=== PATIENT | male | born 1955 | race Caucasian/White ===

== ENCOUNTER 2017-06-25 10:50 | Emergency (ER) | payer MEDICARE, MEDICAID ==
--- NOTE | 2017-06-25 11:25 | ED Physician Chart ---
Chief Complaint/HPI - Patient Information Date Seen:: 06/25/17 Time Seen:: 11:24 Chief Complaint:: multiple complaints History of Present Illness:: this patient says he lives in [place] and happens to be up here visiting a friend this week. He has a PMD somewhere named something like "Dr Elkins" but cant say where the office is..and hasnt been there in >6mo. Last Dr visit was 6 m.a and sounds like it was at a ED for Headache and pt says the checkup was ok and they told him to leave. He has never been told he had HTN hx. pt here for a multitude of nonuregent complaints. htn was noted a t triage. pt has no cp or sob or HOLLAND. no leg edema. pt's complaints are 1) his eyes have been red and itchy all week. 2) both knee caps are sore. 3) he has been coughing out white sputum occasionally (though no cough heard through my exam) w no hx of fever or sob or cp. 4)he heard buzzing in his ears sometimes. 5) he noted 2 small bumps (<1cm soft painless ) around his body ...all these complaints began over the last week. pt denies other PMH except some abd ex lap sx 10 yrs ago for ?unknown reason. He has obvious Viteligo of b hands and appears to have much choleastoma on his face but denies ever having heard of these diagnoses...nor htn. he denies etoh or drugs or tobacco use. Allergies:: Allergies Allergy/AdvReac Type Severity Reaction Status Date / Time No Known Allergies Allergy Verified 06/25/17 11:03 Vitals:: Vital Signs - 8 hr 06/25/17 11:03 Temp 98.5 F HR 78 RR 16 BP 194/131 O2 Sat % 94 Historian:: Patient Review of Systems - Review of Systems General/Constitutional: No fever, No chills, No weight loss, No weakness, No diaphoresis, No edema, No loss of appetite Skin: Skin lesions, No skin lesions, No rash, No bruising Head: No headache, No light-headedness, Other (tiniitus) Eyes: No loss of vision, No pain, No diplopia, Other (irritated b eyes) ENT: No earache, No nasal drainage, No sore throat, No tinnitus Neck: No neck pain, No swelling, No thyromegaly, No stiffness, No mass noted Cardio Vascular: No chest pain, No palpitations, No PND, No orthopnea, No edema Pulmonary: No SOB, Cough, No cough, Sputum, No sputum, No wheezing GI: No nausea, No vomiting, No diarrhea, No pain, No melena, No hematochezia, No constipation, No hematemesis G/U: No dysuria, No frequency, No hematuria Musculoskeletal: No bone or joint pain, No back pain, No muscle pain Endocrine: No polyuria, No polydipsia Psychiatric: No prior psych history, No depression, No anxiety, No suicidal ideation Hematopoietic: No bruising, No lymphadenopathy Allergic/Immuno: No urticaria, No angioedema Neurological: No syncope, No focal symptoms, No weakness, No paresthesia, No headache, No seizure, No dizziness, No confusion, No vertigo Past Medical History - Past Medical History Past Medical History: HTN, Other (viteligo, ) Social History: Non Smoker, No Alcohol, No Drug Use Surgical History: other (ex lap?why) Medication: None Family Medical History - Family Member Mother Hx Family Cancer: No Hx Family Congestive Heart Failure: No Hx Family Stroke: No Hx Family Diabetes: No Hx Family Seizures: No Hx Family HIV: No Hx Family COPD: No Physical Exam - Physical Examination General/Constitutional: Awake, Well-developed, well-nourished, Alert, No distress, GCS 15, Non-toxic appearing, Ambulatory Other Gen/Cons comments:: mod obese...pt is calm and speaks well. his lack of forthcoming medical data seems incongrous w his obvious fluency he seems calm and in nad. nonlabored breathing. no cough heard. no edema. pt shows 2 small soft rubbery skin lumps smaller than 1cm ...1 at l ankle ...1 at l groin. they are nontender and appear likely chronic. could be early skin tag or a insect edema denny. no firm center sq. eyes appear nrml w sltly injected w eomi, perrla, no dc. knees move well. ambulates ok. obvious viteligo rash to bilat hands. lungs are clear. no neuro defecit Head: Atraumatic Eyes: Lids, conjuctiva normal, PERRL, EOMI Skin: Nl inspection, No rash, No skin lesions, No ecchymosis, Well hydrated, No lymphadenopathy ENMT: External ears, nose nl, Nasal exam nl, Lips, teeth, gums nl Neck: Nontender, Full ROM w/o pain, No JVD, No nuchal rigidity, No bruit, No mass, No stridor Respiratory: Nl effort/Exclusion, Clear to Auscultation, No Wheeze/Rhonchi/Rales Cardio Vascular: RRR, No murmur, gallop, rubs, NL S1 S2 GI: No tenderness/rebounding/guarding, No organomegaly, No hernia, Normal BS's, Nondistended, No mass/bruits, No McBurney tenderness : No CVA tenderness Extremities: No tenderness or effusion, Full ROM, normal strength in all extremities, No edema, Normal digits & nails Neuro/Psych: Alert/oriented, DTR's symmetric, Normal sensory exam, Normal motor strength, Judgement/insight normal, Mood normal, Normal gait, No focal deficits Misc: normal gait, Normal back, No paraspinal tenderness Labs/Radiology/EKG Results - Lab Results Results: Laboratory Tests 06/25/17 06/25/17 06/25/17 11:56 11:56 11:56 WBC 5.6 RBC 4.43 Hgb 13.3 Hct 39.6 MCV 89.4 MCH 30.0 MCHC Differential 33.5 RDW 14.5 Plt Count 206 MPV 8.8 Neutrophils % 60.3 Lymphocytes % 25.2 Monocytes % 8.2 Eosinophils % 4.4 Basophils % 1.9 Sodium 136 Potassium 3.8 Chloride 105 Carbon Dioxide 24.8 Anion Gap 10.0 BUN 20 Creatinine 1.7 H Est GFR ( Amer) 53.0 Est GFR (Non-Af Amer) 43.8 BUN/Creatinine Ratio 11.8 Glucose 110 H Calcium 9.8 Total Bilirubin 0.8 AST 26 ALT 13 Alkaline Phosphatase 48 Troponin I 0.01 B-Natriuretic Peptide 20.4 Total Protein 7.5 Albumin 4.8 Globulin 2.7 Albumin/Globulin Ratio 1.8 Triglycerides Cholesterol LDL Cholesterol Direct HDL Cholesterol 06/25/17 11:56 WBC RBC Hgb Hct MCV MCH MCHC Differential RDW Plt Count MPV Neutrophils % Lymphocytes % Monocytes % Eosinophils % Basophils % Sodium Potassium Chloride Carbon Dioxide Anion Gap BUN Creatinine Est GFR ( Amer) Est GFR (Non-Af Amer) BUN/Creatinine Ratio Glucose Calcium Total Bilirubin AST ALT Alkaline Phosphatase Troponin I B-Natriuretic Peptide Total Protein Albumin Globulin Albumin/Globulin Ratio Triglycerides 317 H Cholesterol 320 H LDL Cholesterol Direct 198 H HDL Cholesterol 44 - Radiology Results Results: ct head- atrophy, no acute problem cxr- mild cardiomegally, no acute pulm process ED Septic Shock - . Is Septic Shock (SBP<90, OR Lactate>4 mmol\\L) present?: No - <6hrs of presentation: Vital Signs: Vital Signs - 8 hr 06/25/17 11:03 Temp 98.5 F HR 78 RR 16 BP 194/131 O2 Sat % 94 Reassessment (Disposition) - Reassessment Reassessment:: i have reviewed all results w pt at this time. have explained that we found 2 very serious unaddressed problems (high cholesterol and untxd htn). advise pt see his pmd magnus for definitive tx and for follow up about his other concerns as his risk for cv event is high until this is improved. . i will give eye drops for irritation rx...also will rx for htn ( lisinopril 20/d #20) have advised his lumps could be skin tags or cholesteatoma and certainly lipid mgt may help or further hernandez by pmd may be advisable. Reassessment Condition:: Unchanged - Diagnosis Diagnosis:: 1 htn - untreated 2 severe high lipids 3 tinnitus - chronic 4 bilateral eye irritation - Aftercare/Follow up Instructions Aftercare/Follow-Up Instructions:: Counseled pt regarding lab results/diagnosis & need follow up - Patient Disposition Discharge/Transfer:: Home Condition at Disposition:: Unchanged ED Discharge Plan - Patient Disposition Admit/Discharge/Transfer: PT DISCHARGED HOME Instructions: Hypertension, [id number], Hypercholesterolemia Accepting Physician: not on staff,PCP is [Primary Care Provider] -
[2017-06-25 12:07] LABS: % BASOPHILS 1.9 % (0.0-2.0); % EOSINOPHILS 4.4 % (0.0-5.0); % LYMPHOCYTES 25.2 % (20.0-50.0); % MONOCYTES 8.2 % (2.0-10.0); % NEUTROPHILS 60.3 % (40.0-80.0); HEMATOCRIT 39.6 % (39.0-49.0); HEMOGLOBIN 13.3 gm/dL (13.2-17.3); MEAN CELL VOLUME 89.4 fl (80-99); MEAN CORPUSCULAR HGB CONC 33.5 pg (28.0-36.0); MEAN PLATELET VOLUME 8.8 fl; NEUTROPHILE ABSOLUTE 3.4 Th/cmm (1.8-8.0); PLATELET COUNT 206 Th/cmm (150-400); RED BLOOD COUNT 4.43 Mil/cmm (4.30-5.70); RED CELL DISTRIBUTION WIDTH 14.5 % (11.5-20.0); WHITE BLOOD COUNT 5.6 Th/cmm (4.8-10.8)
[2017-06-25 12:23] LABS: ALB/GLOB RATIO 1.8 (1.0-1.8); BILIRUBIN,TOTAL 0.8 mg/dL (0.3-1.0); BUN/CREATININE RATIO 11.8; CALCIUM SERUM 9.8 mg/dL (8.6-10.3); CARBON DIOXIDE 24.8 mEq/L (21.0-31.0); CREATININE - SERUM 1.7 mg/dL (0.7-1.3); POTASSIUM SERUM 3.8 mEq/L (3.5-5.1)
[2017-06-25 12:24] LABS: CHOLESTEROL 320 mg/dL (<200); TRIGLYCERIDES 317 mg/dL (<150)
[2017-06-25 12:25] LABS: TROP I 0.01 ng/mL (0.01-0.05)
[2017-06-25 12:33] LABS: BNP 20.4 pg/mL (5.0-100.0)
--- NOTE | 2017-06-25 13:12 | Diagnostic Imaging Report ---
Portable chest x-ray HISTORY: Cough The heart size appears generous. There is a poor inspiration. No focal pulmonary processes. No hilar or mediastinal abnormalities. IMPRESSION: 1. No acute focal pulmonary processes 2. Suggestion of cardiomegaly
--- NOTE | 2017-06-25 13:12 | Diagnostic Imaging Report ---
CT scan of the brain without intravenous contrast HISTORY: Headache Total DLP equals 633 CTDI equals 37.9 Axial sections were obtained from the base of the skull to the vertex. There is prominence/enlargement of the ventricular system size. Associated enlargement of cerebral sulci and subarachnoid cisterns. Findings are consistent with changes of generalized cerebral atrophy. No acute parenchymal abnormalities. No acute cerebral hemorrhage. Hypodensity is seen within the supratentorial white matter regions without mass effect. The findings may be associated with chronic small vessel ischemic disease. No extra-axial masses or abnormal fluid collections. IMPRESSION: 1. No acute abnormalities 2. Cerebral atrophy 3. Supratentorial white matter changes that may reflect chronic small vessel ischemic disease
[2017-06-25 13:44] LABS: URINE BILIRUBIN NEGATIVE (NEGATIVE); URINE BLOOD NEGATIVE (NEGATIVE); URINE GLUCOSE (UA) NEGATIVE (NEGATIVE); URINE KETONE NEGATIVE (NEGATIVE); URINE PH 6.5 (4.6 - 8.0); URINE PROTEIN 30 mg/dL (NEGATIVE); URINE UROBILINOGEN 0.2 E.U./dL (0.2 - 1.0)
[2017-06-25 13:48] LABS: URINE COLOR YELLOW
[2017-06-25 13:50] LABS: URINE BACTERIA NONE SEEN /hpf (NONE SEEN); URINE EPITHELIAL CELLS RARE /lpf (FEW); URINE RBC NONE SEEN /hpf (0-5); URINE WBC NONE SEEN /hpf (0-5)
[2017-06-25 14:02] LABS: AMPHETAMINE URINE NEGATIVE (NEGATIVE); BARBITURATES URINE NEGATIVE (NEGATIVE); METHADONE URINE NEGATIVE (NEGATIVE)
== END 2017-06-25 14:00 | disposition home or self-care (01) ==
LOC: ER 10:50
DX: H57.8 Other specified disorders of eye and adnexa (principal); H93.19 Tinnitus, unspecified ear; E78.5 Hyperlipidemia, unspecified; I10 Essential (primary) hypertension; R51 Headache
CPT/HCPCS: 36415-UA; 70450-TC; 71010-TC; 80053-TC; 80061-TC; 80307; 81001-TC; 83880-TC; 84484-TC; 85025-TC; 93005; Z7610